=== PATIENT | male | born 1965 | race Caucasian/White ===

== ENCOUNTER 2016-06-18 06:49 | Inpatient (IN) | payer MEDICARE, OTHER ==
[~2016-06-18] VITALS: Ht 170.2 cm; Wt 100.2 kg
[2016-06-18] VITALS (11 sets, daily range): BP systolic 102–153; BP diastolic 55–98
[2016-06-18] MEDS ORDERED: TRUVADA 200 MG1 EAC1 ORAL (06:58)
--- NOTE | 2016-06-18 07:14 | Emergency Room Report ---
History of Present Illness General Chief Complaint: Chest Pain Source: Patient Present Illness HPI 51YOM walk-in patient with right sided chest pain, /, "heavy tightness", radiating to back. No assoc diaphoresis, nausea/vomiting, SOB. Not pleuritic. No cough, fever/chills. Patient was already awake when pain started. Didnt take ASA or other medications. "relapsed" with ETOH and cocaine use yesterday. + +Heavy smoker daily. No previous MN. History of HIV on HAART, viral load undetectable at last check. Father and brother both with MN "when they were my age." Allergies: Coded Allergies: No Known Allergies (Verified , 08/20/11) Patient History Past Medical History: HIV Past Surgical History: none Pertinent Family History: MN, other - Father and brother with MN at "same age as me" Social History: Reports: alcohol use, drug use, smoking Review of Systems All Other Systems: negative except mentioned in HPI Physical Exam Vital Signs Date Time Temp Pulse Resp B/P Pulse Ox O2 Delivery O2 Flow Rate FiO2 06/18/16 06:54 98.2 102 18 152/99 95 Room Air Sp02 EP Interpretation: reviewed, abnormal General Appearance: alert, GCS 15, non-toxic, mild distress, other - Very heavy cigarette smoke smell Head: normocephalic, atraumatic Eyes: bilateral eye EOMI, bilateral eye PERRL ENT: normal ENT inspection, hearing grossly normal, normal voice Neck: normal inspection, full range of motion, supple, no bony tend Respiratory: normal inspection, chest non-tender, lungs clear, normal breath sounds, no rhonchi, no respiratory distress, no retraction, no accessory muscle use, no wheezing Cardiovascular #1: no edema, tachycardia Gastrointestinal: normal inspection, normal bowel sounds, non tender, soft, no guarding, no hernia Genitourinary: no CVA tenderness Musculoskeletal: normal inspection, back normal, normal range of motion, Wilbert' s Sign negative Neurologic: normal inspection, alert, oriented x3, responsive, healthcare representative III-XII nml as tested, motor strength/tone normal, speech normal Psychiatric: normal inspection, judgement/insight normal, mood/affect normal Skin: normal inspection, normal color, no rash Lymphatic: normal inspection Procedures Critical Care Time Critical Care Time 35 minutes Care for a 51 YO M with Chest pain. PMHx and CAD risk factors include: HIV, family history, cocaine use, ETOH, cigarette smoking Presents complains of right sided radiating chest pain, heavy/tight for 3 hours Patient immediately placed on threat monitoring analyst with rhytm strip and STAT EKG was obtained which showed NSR, no ischemia. Notable for sinus tachycardia. Labs indicated: CBC, CMP, troponin, urine tox Highly suspected: Cocaine induced vasospasm vs AMI vs. unstable angina vs MSK pain High dose ASA and benzos given with nitro paste Possible interventions - Heparin, SL Ntg, Nitro drip, Thrombolytics, repeat EKG. Critical care time of 35 minutes including: re-exams and consultations and review of serial EKG's and Laboratory tests, not including reportable procedures. Medical Decision Making Diagnostic Impression: Primary Impression: Chest pain Qualified Codes: R07.9 - Chest pain, unspecified Additional Impressions: Rhabdomyolysis Qualified Codes: M62.82 - Rhabdomyolysis Cocaine abuse ER Course Labs: No leuks. H&h stable. Troponin 0. Elevated CK. SerumCr normal CXR: No PNA, PTX A: Rhabdo (patient now endorses recent heavy working out with a seeing eye dog trainer as well) - Multiple 3L NS given in ED - No VANE Chest pain Much relieved with ASA, benzos ?cocaine induced vasospasm Troponin 0 Will need second troponin rule-out Endorsed to Dr Joseph for tele admit at 836am EKG Diagnostic Results Rate: tachycardiac Rhythm: NSR ST Segments: no acute changes ASA given to the pt in ED: No Rhythm Strip Diag. Results EP Interpretation: yes Rhythm: NSR, no PVC's, no ectopy Chest X-Ray Diagnostic Results EP Interpretation: Yes Findings: no consolidation, no effusion, no pneumothorax, no acute cardiopulmonary disease Number of Views: 1 Last Vital Signs Date Time Temp Pulse Resp B/P Pulse Ox O2 Delivery O2 Flow Rate FiO2 06/18/16 06:54 98.2 102 18 152/99 95 Room Air Status: improved Disposition: ADMITTED INPATIENT Condition: Critical ABBI LOPEZ M.D. Jun 18, 2016 07:14
[2016-06-18] MEDS ORDERED: LORazepam Inj 2mg/ml 1ml IV ONE ×2 (07:15→09:00)
[2016-06-18] MEDS ORDERED: Nitroglycerin 2% oint pkt TOPIC ONE (07:15)
[2016-06-18 07:20] LABS: EOSINOPHILS % (AUTO) 0.6 % (0.0-3.0); LYMPHOCYTES % (AUTO) 18.2 % (20.0-45.0); MEAN CORPUSCULAR HEMOGLOBIN 34.7 PG (27.0-31.0); MEAN CORPUSCULAR HGB CONC 33.2 G/DL (32.0-36.0); MEAN CORPUSCULAR VOLUME 104 FL (80-99); MEAN PLATELET VOLUME 10.1 FL (6.5-10.1); MONOCYTES % (AUTO) 6.3 % (1.0-10.0); NEUTROPHILS % (AUTO) 73.9 % (45.0-75.0); PLATELET COUNT 162 K/UL (150-450); RED BLOOD COUNT 4.48 M/UL (4.70-6.10); RED CELL DISTRIBUTION WIDTH 12.1 % (11.6-14.8); WHITE BLOOD COUNT 7.8 K/UL (4.8-10.8)
[2016-06-18 07:29] LABS: ALANINE AMINOTRANSFERASE 65 U/L (3-41); ALBUMIN/GLOBULIN RATIO 1.8 (1.0-2.7); ANION GAP 21 (5-15); ASPARTATE AMINO TRANSFERASE 77 U/L (5-40); CALCIUM 9.6 mg/dL (8.6-10.2); CARBON DIOXIDE 20 mEQ/L (20-30); CHLORIDE 96 mEQ/L (98-107); CREATININE 1.2 mg/dL (0.7-1.2); GLOMERULAR FILTRATION RATE > 60 mL/min (>60); HEMOLYSIS 5; POTASSIUM 4.1 mEQ/L (3.4-4.9); SODIUM 137 mEQ/L (135-145); TOTAL PROTEIN 7.3 g/dL (6.6-8.7); TROPONIN I < 0.30 ng/mL (<=0.30)
[2016-06-18 07:39] LABS: CKMB 9.4 ng/mL (< 6.7)
[2016-06-18] MEDS ORDERED: DuoNeb 0.5-3(2.5)mg/3ml neb HHN PRN (11:45)
[2016-06-18] MEDS ORDERED: Nitroglycerin Subl 0.4mg tab (Bottle Of 25) SL PRN (11:45)
[2016-06-18] MEDS ORDERED: Enalaprilat 2.5mg/2ml Inj IV PRN (11:45)
[2016-06-18] MEDS ORDERED: Ketorolac 30mg Inj IV PRN (11:45)
[2016-06-18] MEDS ORDERED: Morphine Sulfate 2mg/ml Inj IVP PRN (11:45)
[2016-06-18] MEDS ORDERED: Diltiazem 25mg/5ml IV PRN (11:45)
[2016-06-18] MEDS ORDERED: Miralax 17gm pkt ORAL PRN (11:45)
--- NOTE | 2016-06-18 13:12 | Diagnostic Imaging Report ---
Indication: PAIN Technique: One view of the chest Comparison: 08/19/2011 Findings: Lung and pleural space are clear. Heart size is normal. No significant change Impression: No acute process
[2016-06-18 16:33] LABS: TROPONIN I < 0.30 ng/mL (<=0.30)
--- NOTE | 2016-06-18 18:25 | Cardiology Progress Note ---
Assessment/Plan Assessment/Plan chest pain cocain abue tobacco abuse etoh abuse hiv 2 trop neg repat treop in amd echo ekc home soon unles abn ekg or torp outpt fu [id number] Objective Last 24 Hour Vital Signs Date Time Temp Pulse Resp B/P Pulse Ox O2 Delivery O2 Flow Rate FiO2 06/18/16 18:00 98.2 97 20 129/86 93 Room Air 06/18/16 16:38 97.5 89 18 124/87 100 Room Air 06/18/16 16:27 89 18 124/87 100 Room Air 06/18/16 15:00 97.5 78 20 134/88 100 Room Air 06/18/16 14:00 88 18 124/78 99 Room Air 06/18/16 12:20 98 19 114/77 98 Room Air 06/18/16 11:12 84 17 102/72 98 Room Air 06/18/16 10:00 93 17 114/55 95 Room Air 06/18/16 09:00 101 19 123/80 99 Room Air 06/18/16 08:00 97 18 136/91 97 Room Air 06/18/16 07:36 102 16 153/98 94 Room Air 06/18/16 07:18 153/98 06/18/16 07:08 102 18 Room Air 06/18/16 06:54 98.2 102 18 152/99 95 Room Air Laboratory Tests Test 06/18/16 06:50 06/18/16 14:48 06/18/16 15:52 White Blood Count 7.8 K/UL (4.8-10.8) Red Blood Count 4.48 M/UL (4.70-6.10) L Hemoglobin 15.5 G/DL (14.2-18.0) Hematocrit 46.8 % (42.0-52.0) Mean Corpuscular Volume 104 FL (80-99) H Mean Corpuscular Hemoglobin 34.7 PG (27.0-31.0) H Mean Corpuscular Hemoglobin Concent 33.2 G/DL (32.0-36.0) Red Cell Distribution Width 12.1 % (11.6-14.8) Platelet Count 162 K/UL (150-450) Mean Platelet Volume 10.1 FL (6.5-10.1) Neutrophils (%) (Auto) 73.9 % (45.0-75.0) Lymphocytes (%) (Auto) 18.2 % (20.0-45.0) L Monocytes (%) (Auto) 6.3 % (1.0-10.0) Eosinophils (%) (Auto) 0.6 % (0.0-3.0) Basophils (%) (Auto) 1.0 % (0.0-2.0) Sodium Level 137 mEQ/L (135-145) Potassium Level 4.1 mEQ/L (3.4-4.9) Chloride Level 96 mEQ/L (98-107) L Carbon Dioxide Level 20 mEQ/L (20-30) Anion Gap 21 (5-15) H Blood Urea Nitrogen 36 mg/dL (7-23) H Creatinine 1.2 mg/dL (0.7-1.2) Estimat Glomerular Filtration Rate > 60 mL/min (>60) Glucose Level 78 mg/dL (74-106) Calcium Level 9.6 mg/dL (8.6-10.2) Total Bilirubin 0.5 mg/dL (0.0-1.2) Aspartate Amino Transf (AST/SGOT) 77 U/L (5-40) H Alanine Aminotransferase (ALT/SGPT) 65 U/L (3-41) H Alkaline Phosphatase 82 U/L (40-129) Total Creatine Kinase 1271 U/L (38-174) H Creatine Kinase MB 9.4 ng/mL (< 6.7) H Creatine Kinase MB Relative Index 0.7 Troponin I < 0.30 ng/mL (<=0.30) < 0.30 ng/mL (<=0.30) Total Protein 7.3 g/dL (6.6-8.7) Albumin 4.7 g/dL (3.5-5.2) Globulin 2.6 g/dL Albumin/Globulin Ratio 1.8 (1.0-2.7) Urine Opiates Screen Negative (NEGATIVE) Urine Barbiturates Screen Negative (NEGATIVE) Phencyclidine (PCP) Screen Negative (NEGATIVE) Urine Amphetamines Screen Negative (NEGATIVE) Urine Benzodiazepines Screen Negative (NEGATIVE) Urine Cocaine Screen Positive (NEGATIVE) H Urine Marijuana (THC) Screen Negative (NEGATIVE) CHRISTIAN FONSECA Jun 18, 2016 18:25
--- NOTE | 2016-06-18 20:43 | History and Physical ---
History of Present Illness General Date patient seen: Jun 18, 2016 Reason for Hospitalization: Chest Pain Present Illness HPI 51 year old male, with hx of HIV, viral load undetectable walk-in patient with right sided chest pain, radiating to back. No assoc diaphoresis, nausea/ vomiting, SOB. Not pleuritic. He started to use ETOH and cocaine yesterday. Pt is admitted to telemetry to rule out DE and ACS. Allergies: Coded Allergies: No Known Allergies (Verified , 08/20/11) Medication History Discontinued Medications Emtricitabine/Tenofovir 200-300MG* (Truvada 200-300MG*), 1 TAB ORAL DAILY, ( Reported) Discontinued Reason: Pt stopped taking med Patient History Healthcare decision maker Resuscitation status Advanced Directive on File Past Medical/Surgical History Past Medical/Surgical History: (1) HIV disease Review of Systems All Other Systems: negative except mentioned in HPI Physical Exam General Appearance: WD/WN Lines, tubes and drains: peripheral, central line HEENT: normocephalic, anicteric Neck: non-tender, supple Respiratory/Chest: chest wall non-tender, normal breath sounds Cardiovascular/Chest: normal peripheral pulses, normal rate Abdomen: normal bowel sounds, non tender Genitourinary/Rectal: normal genital exam, heme negative stool Last 24 Hour Vital Signs Date Time Temp Pulse Resp B/P Pulse Ox O2 Delivery O2 Flow Rate FiO2 06/18/16 19:00 97.5 89 20 135/82 95 Room Air 06/18/16 18:00 98.2 97 20 129/86 93 Room Air 06/18/16 16:38 97.5 89 18 124/87 100 Room Air 06/18/16 16:27 89 18 124/87 100 Room Air 06/18/16 15:00 97.5 78 20 134/88 100 Room Air 06/18/16 14:00 88 18 124/78 99 Room Air 06/18/16 12:20 98 19 114/77 98 Room Air 06/18/16 11:12 84 17 102/72 98 Room Air 06/18/16 10:00 93 17 114/55 95 Room Air 06/18/16 09:00 101 19 123/80 99 Room Air 06/18/16 08:00 97 18 136/91 97 Room Air 06/18/16 07:36 102 16 153/98 94 Room Air 06/18/16 07:18 153/98 4/3/17 07:08 102 18 Room Air 06/18/16 06:54 98.2 102 18 152/99 95 Room Air Laboratory Tests Test 06/18/16 06:50 06/18/16 14:48 06/18/16 15:52 White Blood Count 7.8 K/UL (4.8-10.8) Red Blood Count 4.48 M/UL (4.70-6.10) L Hemoglobin 15.5 G/DL (14.2-18.0) Hematocrit 46.8 % (42.0-52.0) Mean Corpuscular Volume 104 FL (80-99) H Mean Corpuscular Hemoglobin 34.7 PG (27.0-31.0) H Mean Corpuscular Hemoglobin Concent 33.2 G/DL (32.0-36.0) Red Cell Distribution Width 12.1 % (11.6-14.8) Platelet Count 162 K/UL (150-450) Mean Platelet Volume 10.1 FL (6.5-10.1) Neutrophils (%) (Auto) 73.9 % (45.0-75.0) Lymphocytes (%) (Auto) 18.2 % (20.0-45.0) L Monocytes (%) (Auto) 6.3 % (1.0-10.0) Eosinophils (%) (Auto) 0.6 % (0.0-3.0) Basophils (%) (Auto) 1.0 % (0.0-2.0) Sodium Level 137 mEQ/L (135-145) Potassium Level 4.1 mEQ/L (3.4-4.9) Chloride Level 96 mEQ/L (98-107) L Carbon Dioxide Level 20 mEQ/L (20-30) Anion Gap 21 (5-15) H Blood Urea Nitrogen 36 mg/dL (7-23) H Creatinine 1.2 mg/dL (0.7-1.2) Estimat Glomerular Filtration Rate > 60 mL/min (>60) Glucose Level 78 mg/dL (74-106) Calcium Level 9.6 mg/dL (8.6-10.2) Total Bilirubin 0.5 mg/dL (0.0-1.2) Aspartate Amino Transf (AST/SGOT) 77 U/L (5-40) H Alanine Aminotransferase (ALT/SGPT) 65 U/L (3-41) H Alkaline Phosphatase 82 U/L (40-129) Total Creatine Kinase 1271 U/L (38-174) H Creatine Kinase MB 9.4 ng/mL (< 6.7) H Creatine Kinase MB Relative Index 0.7 Troponin I < 0.30 ng/mL (<=0.30) < 0.30 ng/mL (<=0.30) Total Protein 7.3 g/dL (6.6-8.7) Albumin 4.7 g/dL (3.5-5.2) Globulin 2.6 g/dL Albumin/Globulin Ratio 1.8 (1.0-2.7) Urine Opiates Screen Negative (NEGATIVE) Urine Barbiturates Screen Negative (NEGATIVE) Phencyclidine (PCP) Screen Negative (NEGATIVE) Urine Amphetamines Screen Negative (NEGATIVE) Urine Benzodiazepines Screen Negative (NEGATIVE) Urine Cocaine Screen Positive (NEGATIVE) H Urine Marijuana (THC) Screen Negative (NEGATIVE) Height (Feet): 5 Height (Inches): 7.00 Weight (Pounds): 200 Medications Current Medications Medications (Trade) Dose Ordered Sig/Luis Route PRN Reason Start Time Stop Time Status Last Admin Dose Admin Acetaminophen (Tylenol) 650 mg Q4H PRN ORAL FEVER 06/18/16 11:45 07/18/16 11:44 Albuterol/ Ipratropium (DuoNeb 0.5-3(2.5)mg/3ml) 3 ml Q4H PRN HHN Shortness of Breath 06/18/16 11:45 06/23/16 11:44 Aspirin (ASA) 162 mg DAILY ORAL 06/19/16 09:00 07/19/16 08:59 Diltiazem HCl (Cardizem) 10 mg Q1H PRN IV HR > 120 06/18/16 11:45 07/18/16 11:44 Emtricitabine/ Tenofovir (Truvada 200/ 300mg) 1 tab DAILY ORAL 06/19/16 09:00 07/19/16 08:59 UNV Enalaprilat (Vasotec) 2.5 mg Q6H PRN IV sbp more than 160 06/18/16 11:45 07/18/16 11:44 Heparin Sodium (Porcine) (Heparin 5000 units/ml) 5,000 units EVERY 12 HOURS SUBQ 4/3/17 21:00 07/18/16 20:59 Ketorolac Tromethamine (Toradol 30mg) 30 mg Q6H PRN IV moderate pain ( 4-6) 06/18/16 11:45 06/23/16 11:44 Lorazepam (Ativan 2mg/ml 1ml) 1 mg Q4H PRN IV For Anxiety 06/18/16 21:00 06/25/16 20:59 Morphine Sulfate (Morphine Sulfate) 2 mg Q4H PRN IVP severe Pain (Pain Scale 7-10) 06/18/16 11:45 06/25/16 11:44 Nitroglycerin (Ntg) 0.4 mg Q5M PRN SL Prn Chest Pain 06/18/16 11:45 07/18/16 11:44 Ondansetron HCl (Zofran) 4 mg Q6H PRN IVP Nausea & Vomiting 06/18/16 11:45 07/18/16 11:44 Pantoprazole (Protonix) 40 mg DAILY ORAL 06/19/16 09:00 07/19/16 08:59 Polyethylene Glycol (Miralax) 17 gm DAILYPRN PRN ORAL Constipation 06/18/16 11:45 07/18/16 11:44 Temazepam (Restoril) 15 mg HSPRN PRN ORAL Insomnia 06/18/16 11:45 06/25/16 11:44 Assessment/Plan Problem List: (1) Chest pain ICD Codes: R07.9 - Chest pain, unspecified SNOMED: 80887488 Qualifiers: Qualified Codes: R07.9 - Chest pain, unspecified (2) Cocaine abuse ICD Codes: F14.10 - Cocaine abuse, uncomplicated SNOMED: 35902077, 842371074 (3) Rhabdomyolysis ICD Codes: M62.82 - Rhabdomyolysis SNOMED: 452461741, 423089950 Qualifiers: Qualified Codes: M62.82 - Rhabdomyolysis Assessment/Plan serial ekg, troponin echo cardiology evaluation. WANDA TAN Jun 18, 2016 20:43
[2016-06-18] MEDS ORDERED: LORazepam Inj 2mg/ml 1ml IV PRN (21:00)
[2016-06-18] MEDS: Heparin 5000 units/ml inj SUBQ SCH (21:31)
--- NOTE | 2016-06-18 23:57 | Cardiology Report ---
APPROVED REPORT EKG Measurement Heart [id number] Sinus tachycardia Otherwise normal ECG
[2016-06-19 00:33] VITALS: BP 108/75
--- NOTE | 2016-06-19 03:38 | Consultation ---
DATE OF CONSULTATION: 06/18/2016 CARDIOLOGY CONSULTATION: REFERRING PHYSICIAN: Izabel Joseph M.D. REASON FOR REFERRAL: Chest pain. HISTORY OF PRESENT ILLNESS: This is a 51-year-old gentleman, who has a history of HIV who has been sober except for the past few months, relapsed back, uses cocaine several times a week. He drinks alcohol. He does smoke and yesterday he started having some pain in the chest radiating to the back straight through, this pain lasted for a while. He really cannot tell me much more than that. There was no radiation of pain. Otherwise, there is no relieving or exacerbating factors identified per the patient. Specifically there is no change in pain with twisting, turning, coughing, and taking a deep breath or walking. He is not experiencing any chest pain right now. He has orthopnea. He has multiple pillows that he uses at home, but not clear whether that is because of shortness of breath. He states he wakes up because of shortness of breath on exertion. He has had palpitations and he has had dizziness. PAST MEDICAL HISTORY: Positive for history of polysubstance abuse. He denies any diabetes or high blood pressure. No heart attack, cancer, stroke, hepatitis, tuberculosis, asthma, emphysema ulcers, kidney problems, liver problems, thyroid problems, anemia, or arthritis. He does have HIV positive. He never had any other medical issues. SOCIAL HISTORY: He smokes, uses drugs, and drinks alcoholic beverages. REVIEW OF SYSTEMS: Gastrointestinal: He has had some nausea and vomiting. He has had some constipation. No bloody stools or black tarry stool. Genitourinary: Negative. Pulmonary: Positive coughing and wheezing. Constitutional: Negative. Neurologic: Negative. PHYSICAL EXAMINATION: GENERAL: Shows to be a middle-aged gentleman, in no apparent respiratory distress, quite unkempt, eye lashes in place, nail portuguese in place of both hands and feet. VITAL SIGNS: Blood pressure is 124/87 with a heart rate of 89, and temperature 97.5 degrees. NECK: Supple. No jugular venous distention. LUNGS: Appear to be clear to auscultation and percussion. CARDIAC: S1 is normal. S2 is normal. Regular rate and rhythm. No heaves, thrills, or gallops noted. There is a holosystolic regurgitant murmur noted. ABDOMEN: Soft and nontender. Positive bowel sounds. EXTREMITIES: There is no edema. No clubbing or cyanosis. NEUROLOGIC: He is awake and responsive. LABORATORY AND DIAGNOSTIC DATA: Chest x-ray is fairly unremarkable. He had a white count of 7.8, hemoglobin 15.7, and platelet count 162,000. Sodium was 137, potassium 4.1, chloride 96, bicarbonate 20, BUN 33, creatinine 1.2, and glucose of 78. AST and ALT elevated at 77 and 65 respectively. Total CK of 1271. Troponin less than 0.3 on two separate occasions. Albumin 4.7. Tox screen shows positive for cocaine, otherwise negative. His electrocardiogram performed in the emergency room shows normal sinus rhythm, normal QRS axis, no ST or T-wave abnormalities of any significant degree. ASSESSMENT: 1. Chest pain radiating to the back, now resolved. 2. Cocaine abuse. 3. Alcohol intake and tobacco intake. 4. Human immunodeficiency virus. This patient is admitted to the hospital because of the chest pain. There is no evidence of myonecrosis so far. First set of cardiac enzymes negative. EKG is fairly unremarkable. Chest x-ray unremarkable with no clinical evidence suggestive of congestive heart failure. He will have echocardiogram to assess the left ventricular systolic function. Recommendation to not smoke, not drink, and no use of drugs was discussed with the patient. He will not use beta-blockers in light of his use of cocaine. I will follow the patient along with you. Rodrigo Castellano M.D. DR: John JOB#: [id number] CC:
[2016-06-19 04:00] VITALS: BP 114/81
[2016-06-19 05:46] LABS: BASOPHILS % (AUTO) 0.8 % (0.0-2.0); LYMPHOCYTES % (AUTO) 20.6 % (20.0-45.0); MEAN CORPUSCULAR HGB CONC 33.4 G/DL (32.0-36.0); MEAN CORPUSCULAR VOLUME 105 FL (80-99); MEAN PLATELET VOLUME 10.6 FL (6.5-10.1); MONOCYTES % (AUTO) 8.7 % (1.0-10.0); NEUTROPHILS % (AUTO) 66.8 % (45.0-75.0); PLATELET COUNT 133 K/UL (150-450); RED CELL DISTRIBUTION WIDTH 12.3 % (11.6-14.8); WHITE BLOOD COUNT 7.1 K/UL (4.8-10.8)
[2016-06-19 05:51] LABS: PROTHROMBIN TIME 10.2 SEC (9.30-11.50)
[2016-06-19 06:00] LABS: CHOLESTEROL/HDL RATIO 4.4 (3.3-4.4); CRP QUANT 0.5 mg/dL (< 0.5)
[2016-06-19 06:01] LABS: TROPONIN I < 0.30 ng/mL (<=0.30)
[2016-06-19 06:10] LABS: THYROID STIMULATING HORMONE 0.883 uIU/mL (0.300-4.500)
[2016-06-19 08:00] VITALS: BP 140/82
[2016-06-19] MEDS: ACYCLOVIR 800MG TABLETS ORAL SCH ×2 (08:58→12:51)
[2016-06-19] MEDS: Heparin 5000 units/ml inj SUBQ SCH (08:59)
[2016-06-19] MEDS ORDERED: Nevirapine 200mg Tab ORAL SCH (09:00)
[2016-06-19] MEDS ORDERED: NEVIRAPINE 400 MG ORAL SCH (09:00)
[2016-06-19] MEDS ORDERED: DESCOVY ORAL SCH (09:00)
[2016-06-19] MEDS ORDERED: Aspirin Baby 81mg ORAL SCH (09:00)
[2016-06-19] MEDS ORDERED: Emitricitabine/Tenofovir 200/300mg tab ORAL SCH (09:00)
--- NOTE | 2016-06-19 10:57 | Pulmonology Progress Note ---
Assessment/Plan Problems: (1) Chest pain (2) Cocaine abuse (3) Rhabdomyolysis Assessment/Plan echo is done, result pending will dc home when cleared by cardiology. Subjective ROS Limited/Unobtainable: No Interval Events: no more chest pain Constitutional: Reports: no symptoms HEENT: Repors: no symptoms Respiratory: Reports: no symptoms Allergies: Coded Allergies: No Known Allergies (Verified , 08/20/11) Objective Last 24 Hour Vital Signs Date Time Temp Pulse Resp B/P Pulse Ox O2 Delivery O2 Flow Rate FiO2 06/19/16 08:00 83 06/19/16 08:00 97.9 77 19 140/82 95 06/19/16 04:00 98.0 94 20 114/81 100 Room Air 06/19/16 04:00 85 06/19/16 00:33 98.4 90 20 108/75 97 Room Air 06/19/16 00:00 91 06/18/16 20:30 96 06/18/16 19:00 97.5 89 20 135/82 95 Room Air 06/18/16 18:00 98.2 97 20 129/86 93 Room Air 06/18/16 16:38 97.5 89 18 124/87 100 Room Air 06/18/16 16:27 89 18 124/87 100 Room Air 06/18/16 15:00 97.5 78 20 134/88 100 Room Air 06/18/16 14:00 88 18 124/78 99 Room Air 06/18/16 12:20 98 19 114/77 98 Room Air 06/18/16 11:12 84 17 102/72 98 Room Air Intake and Output 06/18/16 06/19/16 19:00 07:00 Intake Total 3100 ml 420 ml Balance 3100 ml 420 ml Intake Oral 100 ml 420 ml IV Total 3000 ml # Voids 2 1 General Appearance: WD/WN HEENT: normocephalic, anicteric Respiratory/Chest: chest wall non-tender, lungs clear Cardiovascular: normal peripheral pulses, normal rate Abdomen: normal bowel sounds, no organomegaly Extremities: no cyanosis Skin: no rash Neurologic/Psychiatric: supervisor of communications II-XII grossly normal, no motor/sensory deficits Laboratory Tests 06/18/16 14:48: Urine Opiates Screen Negative, Urine Barbiturates Screen Negative, Phencyclidine (PCP) Screen Negative, Urine Amphetamines Screen Negative, Urine Benzodiazepines Screen Negative, Urine Cocaine Screen PositiveH, Urine Marijuana (THC) Screen Negative 06/18/16 15:52: Troponin I < 0.30 06/19/16 04:00: Troponin I < 0.30, White Blood Count 7.1, Red Blood Count 3.80L, Hemoglobin 13.3L, Hematocrit 39.9L, Mean Corpuscular Volume 105H, Mean Corpuscular Hemoglobin 35.0H, Mean Corpuscular Hemoglobin Concent 33.4, Red Cell Distribution Width 12.3, Platelet Count 133L, Mean Platelet Volume 10.6H, Neutrophils (%) (Auto) 66.8, Lymphocytes (%) (Auto) 20.6, Monocytes (%) (Auto) 8.7, Eosinophils (%) (Auto) 3.0, Basophils (%) (Auto) 0.8, Prothrombin Time 10.2 , Prothromb Time International Ratio 1.0, Activated Partial Thromboplast Time 27 , Total Creatine Kinase 494H, C-Reactive Protein, Quantitative 0.5, Triglycerides Level 130, Cholesterol Level 163, LDL Cholesterol 100H, HDL Cholesterol 37, Cholesterol/HDL Ratio 4.4, Thyroid Stimulating Hormone (TSH) 0.883 Current Medications Medications (Trade) Dose Ordered Sig/Luis Route PRN Reason Start Time Stop Time Status Last Admin Dose Admin Acetaminophen (Tylenol) 650 mg Q4H PRN ORAL FEVER 06/18/16 11:45 07/18/16 11:44 Albuterol/ Ipratropium (DuoNeb 0.5-3(2.5)mg/3ml) 3 ml Q4H PRN HHN Shortness of Breath 06/18/16 11:45 06/23/16 11:44 Aspirin (ASA) 162 mg DAILY ORAL 06/19/16 09:00 07/19/16 08:59 06/19/16 08:58 Diltiazem HCl (Cardizem) 10 mg Q1H PRN IV HR > 120 06/18/16 11:45 07/18/16 11:44 Enalaprilat (Vasotec) 2.5 mg Q6H PRN IV sbp more than 160 06/18/16 11:45 07/18/16 11:44 Heparin Sodium (Porcine) (Heparin 5000 units/ml) 5,000 units EVERY 12 HOURS SUBQ 06/18/16 21:00 07/18/16 20:59 06/19/16 08:59 Ketorolac Tromethamine (Toradol 30mg) 30 mg Q6H PRN IV moderate pain ( 4-6) 06/18/16 11:45 06/23/16 11:44 Lorazepam (Ativan 2mg/ml 1ml) 1 mg Q4H PRN IV For Anxiety 06/18/16 21:00 06/25/16 20:59 06/18/16 22:37 Morphine Sulfate (Morphine Sulfate) 2 mg Q4H PRN IVP severe Pain (Pain Scale 7-10) 06/18/16 11:45 06/25/16 11:44 Nitroglycerin (Ntg) 0.4 mg Q5M PRN SL Prn Chest Pain 06/18/16 11:45 07/18/16 11:44 Ondansetron HCl (Zofran) 4 mg Q6H PRN IVP Nausea & Vomiting 06/18/16 11:45 07/18/16 11:44 Pantoprazole (Protonix) 40 mg DAILY ORAL 06/19/16 09:00 07/19/16 08:59 06/19/16 08:59 Patient Own Medication (Patient's Own Med) 1 ea DAILY ORAL 06/19/16 09:00 07/18/16 08:59 06/19/16 08:58 Patient Own Medication (Patient's Own Med) 1 ea DAILY ORAL 06/19/16 09:00 07/19/16 08:59 06/19/16 08:58 Patient Own Medication (Patient's Own Med) 1 ea QID ORAL 06/19/16 09:00 07/19/16 08:59 06/19/16 08:58 Polyethylene Glycol (Miralax) 17 gm DAILYPRN PRN ORAL Constipation 06/18/16 11:45 07/18/16 11:44 Temazepam (Restoril) 15 mg HSPRN PRN ORAL Insomnia 06/18/16 11:45 06/25/16 11:44 06/18/16 21:31 WANDA TAN Jun 19, 2016 10:57
[2016-06-19 12:00] VITALS: BP 131/71
--- NOTE | 2016-06-20 20:03 | Discharge Summary ---
Discharge Summary Hospital Course Date of Admission Jun 18, 2016 at 07:30 Date of Discharge Jun 19, 2016 at 13:50 Admitting Diagnosis CHEST PAIN COCAINE ABUSE AURY Cronin is a 51 year old male who was admitted on Jun 18, 2016 at 07:30 for Chest Pain Cocaine Abuse Hospital Course [id number] Discharge Discharge Disposition Patient was discharged to Home (01) Discharge Diagnoses: Michell Carroll NP Jun 20, 2016 20:03
--- NOTE | 2016-06-21 03:58 | Discharge Summary 2 SIG ---
DATE OF ADMISSION: 06/18/2016 DATE OF DISCHARGE: 06/19/2016 CONSULTING PHYSICIAN: Rodrigo Castellano M.D. BRIEF HOSPITAL COURSE: The patient is a 51-year-old male with history of HIV with viral load undetectable. The patient walked in complaining of right-sided chest pain radiating to the back with no associated diaphoresis nausea, vomiting, or shortness of breath. The patient was admitted to ETOH and cocaine use. He was admitted to telemetry for further cardiac evaluation. Dr. Castellano was consulted. Troponin was negative x2. Toxicology screen was positive for cocaine. EKG showed normal sinus rhythm with normal QRS, no ST to T-wave abnormality of any significant degree. Chest x-ray was unremarkable with no evidence suggestive of congestive heart failure. He was recommended not to smoke, drink, or use any drugs. Chest pain resolved. He was given IV hydration. Due to rapid unexpected improvement in the patient's symptoms and negative workup, the patient was discharged home, advised to follow up with primary care physician. FINAL DIAGNOSES: 1. Chest pain. 2. Cocaine abuse. 3. Alcohol and tobacco intake. 4. Human immunodeficiency virus. 5. Rhabdomyolysis. Izabel Joseph M.D. I have been assigned to dictate discharge summary on this account and I was not involved in the patient's management. Michell Carroll N.P. DR: Harleen JOB#: [id number] CC: MAGALI
--- NOTE | 2016-06-21 10:59 | Cardiology Report ---
APPROVED REPORT EXAM: Two-dimensional and M-mode echocardiogram with Doppler and color Doppler. INDICATION Left ventricular function M-Mode DIMENSIONS IVSd1.2 (0.7-1.1cm)Left Atrium (MM)3.4 (1.6-4.0cm) LVDd5.0 (3.5-5.6cm)Aortic Root3.5 (2.0-3.7cm) PWd1.1 (0.7-1.1cm)Aortic Cusp Exc.2.1 (1.5-2.0cm) LVDs3.6 (2.5-4.0cm) PWs1.1 cm Normal left ventricular chamber size, systolic function and wall motion. Left ventricular ejection fraction estimated to be 60-65%. Moderate left ventricular hypertrophy. No evidence of pericardial fat or effusion. All other cardiac chamber sizes are within normal limits. Focal aortic valve sclerosis with adequate cusp excursion Thickened mitral valve leaflets with normal excursion. Mild mitral annulus and aortic root calcification. Pulmonic valve not well visualized. Normal tricuspid valve structure. IVC is normal in size with physiologic collapse. A color flow and spectral Doppler study was performed and revealed: No aortic regurgitation. No mitral regurgitation. Left ventricular diastolic dysfunction grade 1. No tricuspid regurgitation.
== END 2016-06-19 13:50 | disposition home or self-care (01) | DRG 313 ==
LOC: EMR 07:12 → 2W 07:30 → EDBEDREQ 08:28 → 2W 16:59
DX: R07.9 Chest pain, unspecified (principal); M62.82 Rhabdomyolysis; F14.10 Cocaine abuse, uncomplicated; F10.10 Alcohol abuse, uncomplicated; Z72.0 Tobacco use
CPT/HCPCS: 36415; 71010; 80053; 80061; 80300; 82550; 82553; 84443; 84484; 85025; 85610; 85730; 86140; 93005; 93306